=== PATIENT | female | born 1930 | race Caucasian/White ===

== ENCOUNTER → 2016-11-20 | Outpatient (CLI) | payer OTHER, BC ==
[~2016-11-20] MED LIST: BND25X PO; PRED50TA PO; SYN50 PO; ZNTT/150 PO
== END | disposition home or self-care (01) ==
LOC: C.LABBC 12:00
PROVIDERS: ATTEND Internal Medicine Geriatric Medicine
DX: E03.9 Hypothyroidism, unspecified (principal)

== ENCOUNTER 2017-10-04 19:43 | Emergency (ER) | payer OTHER, BC ==
[~2017-10-04] VITALS: Ht 165.1 cm; Wt 75.6 kg
[2017-10-04 19:49] VITALS: TEMP 36.2; Ht 165.1 cm; Wt 75.6 kg
--- NOTE | 2017-10-04 20:19 | EMERGENCY ROOM VISIT NOTE ---
History Report prepared by Betsy: Jaylan Alcantar Under the Supervision of: Dr. Wes Hinton D.O. First contact with patient: 19:54 Chief Complaint: HYPERTENSION Stated Complaint: PAIN AND HIGH BLOOD PRESSURE History of Present Illness The patient is an 87 year old female who presents to the Emergency Room with complaints of a constant and dull right sided rib pain that the patient has been experiencing for a few days. The patient notes that the pain is always there, but it is not overbearing. The pain is not worsened with breathing. She was also concerned after experiencing a light headed episode after walking up the steps this afternoon. Following this episode she took her blood pressure and found that she was in the 200's systolically. She denies any chest pain or trouble breathing. The patient has a history of hypertension and appendectomy. She visited with Dr. Bains this week for a Prevnar 13 shot. Source of History: patient Onset: A few days [employer] Position: other (Right ribs) Symptom Intensity: minimal Timing: constant Note: Light headed/hypertension Review of Systems See HPI for pertinent positives & negatives. A total of 10 systems reviewed and were otherwise negative. Past Medical & Surgical Medical Problems: (1) Hypertension Surgical Problems: (1) History of appendectomy Hypertension Family History Not pertinent secondary to age. Social History Smoking Status: Former Smoker Drug Use: none Marital Status: Housing Status: lives with significant other Occupation Status: retired Current/Historical Medications Scheduled Hydrochlorothiazide (Hctz), 12.5 MG PO DAILY Labetalol (Normodyne), 100 MG PO BID Levothyroxine Sodium (Levothyroxine Sodium), 75 MCG PO DAILY Allergies Coded Allergies: No Known Allergies (Unverified , NONE, 10/04/17) Physical Exam Vital Signs Date Time Temp Pulse Resp B/P (MAP) Pulse Ox O2 Delivery O2 Flow Rate FiO2 10/04/17 23:29 60 16 132/81 96 10/04/17 22:10 67 138/65 128/61 10/04/17 21:35 82 16 214/111 95 Room Air 10/04/17 20:34 79 10/04/17 19:49 36.2 122 20 221/107 96 Room Air Physical Exam GENERAL: Patient is awake, alert, and in no acute distress. Patient is resting comfortably and showing no signs of anxiety EYES: The conjunctivae are clear. The pupils are round and reactive. EARS, NOSE, MOUTH AND THROAT: The nose is without any evidence of any deformity. Mucous membranes are moist tongue is midline NECK: The neck is nontender and supple. RESPIRATORY: Normal respiratory effort is noted there is no evidence of wheezing rhonchi or rales CARDIOVASCULAR: Regular rate and rhythm noted there no murmurs rubs or gallops normal S1 normal S2 GASTROINTESTINAL: The abdomen is soft. Bowel sounds are present in all quadrants. There is RUQ tenderness to palpation. PELVIS: The Pelvis is stable. No tenderness to palpation is noted. BACK: No midline tenderness or or step-off noted range of motion in flexion extension as well as rotation no signs of muscle spasm noted. There is right CVA tenderness to percussion. MUSCULOSKELETAL/EXTREMITIES: There is no evidence of gross deformity full range of motion is noted in the hips and shoulders SKIN: There is no obvious evidence of any rash. There are no petechiae, pallor or cyanosis noted. NEUROLOGIC: Patient is awake alert and oriented x3 strength is symmetric patellar reflexes are 2+ bilaterally Medical Decision & Procedures ER Provider Diagnostic Interpretation: Radiology results as stated below per my review and radiologist interpretation: ABDOMINAL ULTRASOUND, RIGHT UPPER QUADRANT HISTORY: Right upper quadrant pain.. COMPARISON: Abdomen and pelvis CT 10/04/2017. FINDINGS: Pancreas: The pancreas demonstrates a normal echotexture. Liver: Unremarkable. Gallbladder: No gallbladder wall thickening. No gallstones. CBD: 6 mm. Right kidney: No hydronephrosis. A 1.6 cm angiomyolipoma. IMPRESSION: 1. Normal gallbladder. No gallstones. 2. 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 Electronically signed by: Hilton Flores M.D. 10/04/2017 10:55 PM Dictated Date/Time: 10/04/2017 10:[address] NON[address]AST CT DOSE: 537.48 mGy.cm HISTORY: dizzy TECHNIQUE: Multiaxial CT images of the head were performed without the use of intravenous contrast. Automated exposure control was utilized for this study. A dose lowering technique was utilized adhering to the principles of ALARA. Comparison: None. Findings: The paranasal sinuses and mastoid air cells are clear. The calvarium and skull base are intact. There is no mass, hematoma, midline shift, acute infarct. White matter hypodensity is nonspecific but suggestive of microvascular ischemic change. The ventricles and sulci demonstrate mild age-related involutional changes. Impression: No acute intracranial abnormality. Electronically signed by: Hilton Flores M.D. 10/04/2017 8:59 PM Dictated Date/Time: 10/04/2017 8:58 PM ABDOMEN AND PELVIS CT WITHOUT CONTRAST CT DOSE: 477.13 mGy.cm HISTORY: right flank pain TECHNIQUE: Multiaxial CT images of the abdomen and pelvis were performed without contrast. A dose lowering technique was utilized adhering to the principles of ALARA. COMPARISON STUDY: Abdominal ultrasound 07/22/2013. FINDINGS: A few linear densities at the lung bases suggesting subsegmental atelectasis. No suspicious lytic or blastic osseous lesions. Small hiatus hernia. The unenhanced liver, spleen, pancreas, and adrenal glands are unremarkable. No retroperitoneal lymphadenopathy. Questionable minimal fat stranding at the gallbladder. No gallbladder wall thickening. A 1.5 cm angiomyolipoma within the right kidney. No renal or ureteral calculi. The ureters are normal in course and caliber. No hydronephrosis. Normal bladder. A few calcifications within the uterus suggestive of small fibroids. Mild pelvic floor collapse. Colonic diverticulosis. Suboptimal evaluation for bowel pathology due to the lack of intravenous and oral contrast. However, there is no definite bowel wall thickening or obstruction. IMPRESSION: 1. No renal or ureteral calculi. No hydronephrosis. 2. No definite bowel wall thickening or obstruction. 3. Colonic diverticulosis. 4. Questionable minimal fat stranding surrounding the gallbladder. Recommend follow-up abdominal ultrasound to exclude the possibility of developing acute cholecystitis. 4. A 1.5 cm right renal angiomyolipoma. Electronically signed by: Hilton Flores M.D. 10/04/2017 9:12 PM Dictated Date/Time: 10/04/2017 9:02 PM A[address]OMEN AND PELVIS CT WITHOUT CONTRAST CT DOSE: 477.13 mGy.cm HISTORY: right flank pain TECHNIQUE: Multiaxial CT images of the abdomen and pelvis were performed without contrast. A dose lowering technique was utilized adhering to the principles of ALARA. COMPARISON STUDY: Abdominal ultrasound 07/22/2013. FINDINGS: A few linear densities at the lung bases suggesting subsegmental atelectasis. No suspicious lytic or blastic osseous lesions. Small hiatus hernia. The unenhanced liver, spleen, pancreas, and adrenal glands are unremarkable. No retroperitoneal lymphadenopathy. Questionable minimal fat stranding at the gallbladder. No gallbladder wall thickening. A 1.5 cm angiomyolipoma within the right kidney. No renal or ureteral calculi. The ureters are normal in course and caliber. No hydronephrosis. Normal bladder. A few calcifications within the uterus suggestive of small fibroids. Mild pelvic floor collapse. Colonic diverticulosis. Suboptimal evaluation for bowel pathology due to the lack of intravenous and oral contrast. However, there is no definite bowel wall thickening or obstruction. IMPRESSION: 1. No renal or ureteral calculi. No hydronephrosis. 2. No definite bowel wall thickening or obstruction. 3. Colonic diverticulosis. 4. Questionable minimal fat stranding surrounding the gallbladder. Recommend follow-up abdominal ultrasound to exclude the possibility of developing acute cholecystitis. 4. A 1.5 cm right renal angiomyolipoma. Electronically signed by: Hilton Flores M.D. 10/04/2017 9:12 PM Dictated Date/Time: 10/04/2017 9:02 PM Laboratory Results 10/04/17 20:07 Red Blood Count 4.79, Mean Corpuscular Volume 90.4, Mean Corpuscular Hemoglobin 31.3, Mean Corpuscular Hemoglobin Concent 34.6, Mean Platelet Volume 9.7, Neutrophils (%) (Auto) 60.4, Lymphocytes (%) (Auto) 27.3, Monocytes (%) (Auto) 9.8, Eosinophils (%) (Auto) 1.4, Basophils (%) (Auto) 0.8, Neutrophils # (Auto) 4.63, Lymphocytes # (Auto) 2.09, Monocytes # (Auto) 0.75, Eosinophils # (Auto) 0.11, Basophils # (Auto) 0.06 10/04/17 20:07 Test 10/04/17 20:07 10/04/17 20:30 White Blood Count 7.66 K/uL (4.8-10.8) Red Blood Count 4.79 M/uL (4.2-5.4) Hemoglobin 15.0 g/dL (12.0-16.0) Hematocrit 43.3 % (37-47) Mean Corpuscular Volume 90.4 fL (80-100) Mean Corpuscular Hemoglobin 31.3 pg (25-34) Mean Corpuscular Hemoglobin Concent 34.6 g/dl (32-36) Platelet Count 262 K/uL (130-400) Mean Platelet Volume 9.7 fL (7.4-10.4) Neutrophils (%) (Auto) 60.4 % Lymphocytes (%) (Auto) 27.3 % Monocytes (%) (Auto) 9.8 % Eosinophils (%) (Auto) 1.4 % Basophils (%) (Auto) 0.8 % Neutrophils # (Auto) 4.63 K/uL (1.4-6.5) Lymphocytes # (Auto) 2.09 K/uL (1.2-3.4) Monocytes # (Auto) 0.75 K/uL (0.11-0.59) Eosinophils # (Auto) 0.11 K/uL (0-0.5) Basophils # (Auto) 0.06 K/uL (0-0.2) RDW Standard Deviation 41.9 fL (36.4-46.3) RDW Coefficient of Variation 12.7 % (11.5-14.5) Immature Granulocyte % (Auto) 0.3 % Immature Granulocyte # (Auto) 0.02 K/uL (0.00-0.02) Prothrombin Time 10.2 SECONDS (9.0-12.0) Prothromb Time International Ratio 1.0 (0.9-1.1) Activated Partial Thromboplast Time 25.8 SECONDS (21.0-31.0) Partial Thromboplastin Ratio 1.0 Anion Gap 6.0 mmol/L (3-11) Est Creatinine Clear Calc Drug Dose 47.5 ml/min Estimated GFR () 69.4 Estimated GFR (Non- 59.9 BUN/Creatinine Ratio 15.9 (10-20) Calcium Level 9.1 mg/dl (8.5-10.1) Total Bilirubin 0.5 mg/dl (0.2-1) Direct Bilirubin 0.1 mg/dl (0-0.2) Aspartate Amino Transf (AST/SGOT) 27 U/L (15-37) Alanine Aminotransferase (ALT/SGPT) 31 U/L (12-78) Alkaline Phosphatase 93 U/L (45-117) Total Creatine Kinase 134 U/L (26-192) Creatine Kinase MB 7.2 ng/ml (0.5-3.6) Creatine Kinase MB Ratio 5.4 (0-3.0) Troponin I < 0.015 ng/ml (0-0.045) Total Protein 8.6 gm/dl (6.4-8.2) Albumin 4.2 gm/dl (3.4-5.0) Lipase 319 U/L (73-393) Urine Color YELLOW Urine Appearance CLEAR (CLEAR) Urine pH 7.5 (4.5-7.5) Urine Specific [place] 1.009 (1.000-1.030) Urine Protein NEG (NEG) Urine Glucose (UA) NEG (NEG) Urine Ketones NEG (NEG) Urine Occult Blood NEG (NEG) Urine Nitrite NEG (NEG) Urine Bilirubin NEG (NEG) Urine Urobilinogen NEG (NEG) Urine Leukocyte Esterase NEG (NEG) Laboratory results per my review. Medications Administered Medications (Trade) Dose Ordered Sig/Chinmay Route Start Time Stop Time Status Last Admin Dose Admin Labetalol HCl (Normodyne Tab) 200 mg NOW ONCE PO 10/04/17 21:30 10/04/17 21:31 DC 10/04/17 21:34 200 MG Sodium Chloride 500 ml @ 999 mls/hr Q31M STAT IV 10/04/17 22:15 10/04/17 22:45 DC 10/04/17 22:20 999 MLS/HR ECG Indication: other (Hypertension) Rate (beats per minute): 100 Rhythm: sinus rhythm Findings: PVC, other (LVH Suggested by voltage criteria) Comparison ECG Date: no prior available ED Course 1956: The patient was evaluated in room A11B. A complete history and physical examination were performed. 2129: Ordered Labetalol HCl 200 mg PO. 2214: Ordered Sodium Chloride 500 mL @ 999 mL/hr IV. 2312: Upon reevaluation, the patient is resting in bed. I discussed the results and treatment plan with the patient. She verbalized agreement of the treatment plan. The patient was discharged home. Medical Decision Differential diagnosis: Etiologies such as appendicitis, diverticulitis, PUD, biliary pathology, UTI, pancreatitis, obstruction, mesenteric ischemia, aortic pathology, infections, inflammatory bowel disease, renal colic, as well as others were entertained. Nursing notes reviewed. The patient is an 87-year-old female who presented to emergency department for dizziness but also had other complaints. She had right upper quadrant and right flank pain. Initially I thought her elevated blood pressure was secondary to the pain she was having but she continued to tell me that the pain was not that severe and she was more concerned about the dizziness. She was not short of breath and denied having any chest pain. I discussed the patient's laboratory and radiographic studies with her. She was given a beta liliya to try to bring her blood pressure down a little bit and had good response to it. At one point she got somewhat dizzy and was treated with IV fluids. On final reevaluation her blood pressure was improved and she had no further complaints. I discussed the patient's laboratory and radiographic studies with her. She was encouraged to rest and avoid any strenuous activity. I also encouraged her to continue all medications as prescribed and return to the emergency department immediately symptoms change worsen or the need arises. Medication Reconcilliation Current Medication List: was personally reviewed by me Blood Pressure Screening Blood pressure disposition: Referred to PCP Impression Primary Impression: Hypertension Additional Impressions: RUQ abdominal pain Dizziness Scribe Attestation The scribe's documentation has been prepared under my direction and personally reviewed by me in its entirety. I confirm that the note above accurately reflects all work, treatment, procedures, and medical decision making performed by me. Departure Information Dispostion Home / Self-Care Prescriptions Labetalol (Normodyne) 200 Mg Tab 100 MG PO BID, #30 TAB Prov: Wse Hinton, DO 10/04/17 Referrals Jamie Bains M.D. (PCP) Forms HOME CARE DOCUMENTATION FORM, IMPORTANT VISIT INFORMATION, WORK / SCHOOL INSTRUCTIONS Patient Instructions My [facility] Additional Instructions Call your family in the morning to schedule a follow-up appointment. Rest and avoid any strenuous activity. Continue all medications as prescribed. Return to the emergency Department immediately if symptoms change worsen or the need arises. Problem Qualifiers Primary Impression: Hypertension Hypertension type: unspecified Qualified Codes: I10 - Essential (primary) hypertension
[2017-10-04 20:24] LABS: BASO % 0.8 %; BASO ABS # 0.06 K/uL (0-0.2); EOS % 1.4 %; EOS ABS # 0.11 K/uL (0-0.5); HEMATOCRIT 43.3 % (37-47); IG# 0.02 K/uL (0.00-0.02); LYMPH % 27.3 %; LYMPH ABS # 2.09 K/uL (1.2-3.4); MEAN CELL VOLUME 90.4 fL (80-100); MEAN CORPUSCULAR HEMOGLOBIN 31.3 pg (25-34); MEAN CORPUSCULAR HGB CONC 34.6 g/dl (32-36); MEAN PLATELET VOLUME 9.7 fL (7.4-10.4); MONO % 9.8 %; MONO ABS # 0.75 K/uL (0.11-0.59); NEUT % 60.4 %; NEUT ABS # 4.63 K/uL (1.4-6.5); PLATELET COUNT 262 K/uL (130-400); RED CELL DISTRIBUTION WIDTH CV 12.7 % (11.5-14.5); RED CELL DISTRIBUTION WIDTH SD 41.9 fL (36.4-46.3); WHITE BLOOD COUNT 7.66 K/uL (4.8-10.8)
[2017-10-04] MEDS ORDERED: LEVO75TA5 PO (20:25)
[2017-10-04] MEDS ORDERED: HYDR12.56 PO (20:25)
[2017-10-04 20:39] LABS: ALBUMIN 4.2 gm/dl (3.4-5.0); ALT/SGPT 31 U/L (12-78); AST/SGOT 27 U/L (15-37); BLOOD UREA NITROGEN 14 mg/dl (7-18); CALCIUM 9.1 mg/dl (8.5-10.1); CARBON DIOXIDE 27 mmol/L (21-32); CREATININE 0.88 mg/dl (0.60-1.20); GLUCOSE 114 mg/dl (70-99); LIPASE 319 U/L (73-393); POTASSIUM 3.6 mmol/L (3.5-5.1); SODIUM 129 mmol/L (136-145)
--- NOTE | 2017-10-04 20:42 | DIAGNOSTIC IMAGING REPORT ---
CHEST ONE VIEW PORTABLE HISTORY: Generalized abdominal pain. COMPARISON: Chest 06/16/2014. FINDINGS: The heart remains top normal in size. No pleural effusions. No pneumothorax. Small linear scarlike densities at the left lung base persist. The lungs are otherwise clear. IMPRESSION: No significant change compared to the prior study. No acute process. Electronically signed by: Hilton Floers M.D. 10/04/2017 8:41 PM Dictated Date/Time: 10/04/2017 8:40 PM
[2017-10-04 20:43] LABS: PTT PATIENT 25.8 SECONDS (21.0-31.0)
[2017-10-04 20:44] LABS: ALKALINE PHOSPHATASE 93 U/L (45-117); CKMB 7.2 ng/ml (0.5-3.6); TOTAL PROTEIN 8.6 gm/dl (6.4-8.2)
--- NOTE | 2017-10-04 21:01 | DIAGNOSTIC IMAGING REPORT ---
HEAD CT NONCONTRAST CT DOSE: 537.48 mGy.cm HISTORY: dizzy TECHNIQUE: Multiaxial CT images of the head were performed without the use of intravenous contrast. Automated exposure control was utilized for this study. A dose lowering technique was utilized adhering to the principles of ALARA. Comparison: None. Findings: The paranasal sinuses and mastoid air cells are clear. The calvarium and skull base are intact. There is no mass, hematoma, midline shift, acute infarct. White matter hypodensity is nonspecific but suggestive of microvascular ischemic change. The ventricles and sulci demonstrate mild age-related involutional changes. Impression: No acute intracranial abnormality. Electronically signed by: Hilton Flores M.D. 10/04/2017 8:59 PM Dictated Date/Time: 10/04/2017 8:58 PM
--- NOTE | 2017-10-04 21:13 | DIAGNOSTIC IMAGING REPORT ---
ABDOMEN AND PELVIS CT WITHOUT CONTRAST CT DOSE: 477.13 mGy.cm HISTORY: right flank pain TECHNIQUE: Multiaxial CT images of the abdomen and pelvis were performed without contrast. A dose lowering technique was utilized adhering to the principles of ALARA. COMPARISON STUDY: Abdominal ultrasound 07/22/2013. FINDINGS: A few linear densities at the lung bases suggesting subsegmental atelectasis. No suspicious lytic or blastic osseous lesions. Small hiatus hernia. The unenhanced liver, spleen, pancreas, and adrenal glands are unremarkable. No retroperitoneal lymphadenopathy. Questionable minimal fat stranding at the gallbladder. No gallbladder wall thickening. A 1.5 cm angiomyolipoma within the right kidney. No renal or ureteral calculi. The ureters are normal in course and caliber. No hydronephrosis. Normal bladder. A few calcifications within the uterus suggestive of small fibroids. Mild pelvic floor collapse. Colonic diverticulosis. Suboptimal evaluation for bowel pathology due to the lack of intravenous and oral contrast. However, there is no definite bowel wall thickening or obstruction. IMPRESSION: 1. No renal or ureteral calculi. No hydronephrosis. 2. No definite bowel wall thickening or obstruction. 3. Colonic diverticulosis. 4. Questionable minimal fat stranding surrounding the gallbladder. Recommend follow-up abdominal ultrasound to exclude the possibility of developing acute cholecystitis. 4. A 1.5 cm right renal angiomyolipoma. Electronically signed by: Hilton Flores M.D. 10/04/2017 9:12 PM Dictated Date/Time: 10/04/2017 9:02 PM
[2017-10-04] MEDS ORDERED: LABETALOL HCL 100 MG TAB PO ONE (21:30)
[2017-10-04] MEDS ORDERED: SODIUM CHLORIDE 0.9% 500ML 500 ML IV STA (22:15)
--- NOTE | 2017-10-04 22:56 | DIAGNOSTIC IMAGING REPORT ---
ABDOMINAL ULTRASOUND, RIGHT UPPER QUADRANT HISTORY: Right upper quadrant pain.. COMPARISON: Abdomen and pelvis CT 10/04/2017. FINDINGS: Pancreas: The pancreas demonstrates a normal echotexture. Liver: Unremarkable. Gallbladder: No gallbladder wall thickening. No gallstones. CBD: 6 mm. Right kidney: No hydronephrosis. A 1.6 cm angiomyolipoma. IMPRESSION: 1. Normal gallbladder. No gallstones. 2. 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 Electronically signed by: Hilton Flores M.D. 10/04/2017 10:55 PM Dictated Date/Time: 10/04/2017 10:54 PM
[2017-10-04] MEDS ORDERED: LABE1TAB28 PO (23:14)
[2017-10-04 23:29] VITALS: BP 132/81; PULSE 60; O2SAT 96
== END 2017-10-04 23:29 | disposition home or self-care (01) ==
LOC: C.EDB 19:44 → C.EDA 23:29
DX: I10 Essential (primary) hypertension (principal); R10.11 Right upper quadrant pain; R42 Dizziness and giddiness; Z87.891 Personal history of nicotine dependence; Z90.89 Acquired absence of other organs; Z79.899 Other long term (current) drug therapy

== ENCOUNTER → 2017-10-08 | Outpatient (CLI) | payer OTHER, BC ==
[~2017-10-08] MED LIST changes: -BND25X PO; +CHOL1000 PO; +HYDR12.56 PO; +LABE1TAB28 PO; +LEVO75TA5 PO; +LISI-729 PO; -PRED50TA PO; -SYN50 PO; -ZNTT/150 PO
[2017-10-08 11:30] LABS: BLOOD UREA NITROGEN 12 mg/dl (7-18); CALCIUM 9.4 mg/dl (8.5-10.1); CARBON DIOXIDE 26 mmol/L (21-32); CREATININE 0.78 mg/dl (0.60-1.20); GLUCOSE 122 mg/dl (70-99); POTASSIUM 3.8 mmol/L (3.5-5.1); SODIUM 133 mmol/L (136-145)
== END | disposition home or self-care (01) ==
LOC: C.LABBC 08:22
PROVIDERS: ATTEND Internal Medicine Geriatric Medicine
DX: I10 Essential (primary) hypertension (principal)

== ENCOUNTER 2017-10-09 22:35 | Emergency (ER) | payer OTHER, BC ==
[~2017-10-09] VITALS: Ht 165.1 cm; Wt 75.9 kg
[~2017-10-09 22:35] MED LIST changes: -CHOL1000 PO; -LISI-729 PO
[2017-10-09 22:38] VITALS: TEMP 36.7; Ht 165.1 cm; Wt 75.9 kg
--- NOTE | 2017-10-09 23:37 | EMERGENCY ROOM VISIT NOTE ---
History Report prepared by Betsy: Len Dash Under the Supervision of: Dr. Luli Matthews D.O. First contact with patient: 22:58 Chief Complaint: HYPERTENSION Stated Complaint: HIGH BP,TINGLING AND WARM,DIZZY History of Present Illness The patient is a 87 year old female who presents to the Emergency Room with complaints of intermittent hypertension that began prior to arrival. Patient states she was walking up the stairs at her house when she began to feel "strange". Patient states that she gets this intermittent "overwhelming feeling ". She states the feeling comes on suddenly and last for about 5 minutes. She states her blood pressure during this episode was 187/86. She states the feeling is relieved when she sits down and takes deep breaths. She has associated symptoms of "tingling", hot flashes, dizziness, and a "weird, metallic taste in her mouth". She denies having the taste in her mouth before. She denies a history of similar symptoms. Patient denies associated symptoms stress, SOB, syncope, or palpitations. Patient denies any change of diet. She adds that she drinks a normal amount of fluids. Patient adds that she was at the ER 5 days ago due to a complaint of hypertension. She states she saw her PCP 4 days ago. She adds that the medications she was given by her PCP caused her to have a false reaction. Patient's PCP told her to discontinue the medication until she had a follow-up visit. Patient states that her PCP referred her to ER. She states that she had blood work done yesterday that came back normal. Patient adds that she takes a thyroid medication. Source of History: patient Onset: Prior to arrival Timing: intermittent Modifying Factors (Relieving): breathing (Deep breaths) Note: Patient has associated symptoms of "tingling", hot flashes, and dizziness. Review of Systems See HPI for pertinent positives & negatives. A total of 10 systems reviewed and were otherwise negative. Past Medical & Surgical Medical Problems: (1) Hypertension Surgical Problems: (1) History of appendectomy Family History No pertinent family medical history. Social History Smoking Status: Never Smoker Drug Use: none Marital Status: in relationship Housing Status: lives with significant other Occupation Status: retired Current/Historical Medications Scheduled Cholecalciferol (Vitamin D3), 1 TAB PO DAILY Levothyroxine Sodium (Levothyroxine Sodium), 75 MCG PO DAILY Lisinopril (Prinivil), 10 MG PO DAILY Allergies Coded Allergies: No Known Allergies (Unverified , NONE, 10/10/17) Physical Exam Vital Signs Date Time Temp Pulse Resp B/P (MAP) Pulse Ox O2 Delivery O2 Flow Rate FiO2 10/10/17 03:32 68 18 152/76 95 Room Air 10/10/17 02:21 72 18 181/107 98 Room Air 10/09/17 23:45 80 184/84 84 187/102 85 198/87 10/09/17 23:10 75 10/09/17 22:38 36.7 90 20 237/118 97 Room Air Physical Exam HEENT: Head - normocephalic and atraumatic Pupils are equal, round, and reactive to light. Extraocular eye muscles are intact, and sclera are anicteric. Nose - moist nasal mucosa without discharge. Mouth - moist buccal mucosa. Oropharynx is nonerythematous and there is no tonsillar exudate or edema noted. Neck: Supple; no JVD, nuchal rigidity, cervical lymphadenopathy. Heart: Irregular rate and rhythm. There is a normal S1 and S2 with no murmurs, clicks, or gallops appreciated. Lungs: Clear to auscultation bilaterally with no wheezes, rales, or rhonchi. Abdomen: Soft, completely nontender, nondistended, with good bowel sounds. There are no palpable pulsatile masses or hepatosplenomegaly. There is no guarding, rigidity, or rebound noted. Extremities: No evidence of cyanosis, clubbing, or edema. There are easily palpable peripheral pulses. Skin: warm and dry with good turgor and no rashes. Medical Decision & Procedures Laboratory Results 10/09/17 23:00 Test 10/09/17 23:00 Anion Gap 6.0 mmol/L (3-11) Est Creatinine Clear Calc Drug Dose 51.8 ml/min Estimated GFR () 76.8 Estimated GFR (Non- 66.2 BUN/Creatinine Ratio 16.7 (10-20) Calcium Level 9.7 mg/dl (8.5-10.1) Thyroid Stimulating Hormone (TSH) 4.230 uIu/ml (0.300-4.500) Laboratory results per my review. Medications Administered Medications (Trade) Dose Ordered Sig/Chinmay Route Start Time Stop Time Status Last Admin Dose Admin Sodium Chloride 500 ml @ 999 mls/hr Q31M STAT IV 10/10/17 01:47 10/10/17 02:17 DC 10/10/17 01:47 999 MLS/HR Lorazepam (Ativan Inj) 0.5 mg NOW STAT IV 10/10/17 02:38 10/10/17 02:40 DC 10/10/17 02:44 0.5 MG Procedure Sodium Chloride 500 ml @ 999 mls/hr IV, Ativan Inj 0.5mg IV ECG Indication: other (Hypertension) Rate (beats per minute): 81 Rhythm: normal sinus Findings: no acute ischemic change, no ectopy Comparison ECG Date: 10/04/2017 Change: no significant change Change: Patient's electrocardiogram was interpreted by me. ED Course 2315: The patient was evaluated in room C1B. A complete history and physical examination were performed. Nursing notes and previous electronic medical records were reviewed. IV lock was established and labs were drawn as above. A twelve-lead EKG was obtained as described above. 0010: Orthostatic vital signs - systolic blood pressure elevated upon standing 0136: I reassessed the patient whose blood pressure was 180/77. Patient added that she had one episode where she felt "scared." 0147: Sodium Chloride 500 ml @ 999 mls/hr IV. 0233: I reassessed the patient whose blood pressure is still high. 0238: Ativan Inj 0.5mg IV 0330: Upon reevaluation, the patient is feeling much better. I discussed findings and results with her. Her blood pressure came down nicely. She verbalized agreement of the treatment plan. She was discharged home. Medical Decision The patient is a 87 year old female who presents to the ED with hypertension. Differential diagnosis includes thyroid abnormality, hypertensive crisis, cardiac dysrhythmia, hyponatremia, orthostasis. Lab results show sodium = 133, chloride = 97, normal renal function, normal glucose, and normal TSH. This is an 87-year-old female patient who presents to the emergency department with episodes of near syncope or as she describes it as an overwhelming strange sensation. During these events, she has noted that her blood pressure has been high. She was switched from hydrochlorothiazide to lisinopril. The doses prescribed may have been too high and she was instructed to lower it. The patient is resting comfortably at this time. She did have some elevated blood pressure readings. She seemed quite anxious to me on physical exam. She was given a dose of Ativan which helped her relax and lower blood pressure. Medication Reconcilliation Current Medication List: was personally reviewed by me Blood Pressure Screening Patient's blood pressure: Elevated blood pressure Blood pressure disposition: Referred to PCP Impression Primary Impression: Hypertension Scribe Attestation The scribe's documentation has been prepared under my direction and personally reviewed by me in its entirety. I confirm that the note above accurately reflects all work, treatment, procedures, and medical decision making performed by me. Departure Information Dispostion Home / Self-Care Referrals Jamie Bains M.D. (PCP) Forms HOME CARE DOCUMENTATION FORM, IMPORTANT VISIT INFORMATION, WORK / SCHOOL INSTRUCTIONS Patient Instructions Hypertension Control, My [facility] [place] [employer] Additional Instructions rest take bp twice a day and keep a log. Take lisinopril - 1 tab. in the morning Follow up with Dr. Bains on thursday about possible anxiety med if BP remains high Problem Qualifiers Primary Impression: Hypertension Hypertension type: unspecified Qualified Codes: I10 - Essential (primary) hypertension
[2017-10-10] MEDS ORDERED: LISI-729 PO (00:24)
[2017-10-10] MEDS ORDERED: CHOL1000 PO (00:25)
[2017-10-10 00:51] LABS: CALCIUM 9.7 mg/dl (8.5-10.1); CREATININE 0.81 mg/dl (0.60-1.20); POTASSIUM 3.9 mmol/L (3.5-5.1)
[2017-10-10] MEDS ORDERED: SODIUM CHLORIDE 0.9% 500ML 500 ML IV STA (01:47)
[2017-10-10] MEDS ORDERED: LORAZEPAM 2 MG/ML 1 ML VIAL IV STA (02:38)
[2017-10-10 03:32] VITALS: BP 152/76; PULSE 68; O2SAT 95
== END 2017-10-10 03:52 | disposition home or self-care (01) ==
LOC: C.EDB 22:38 → C.EDC 10-10 03:52
DX: I10 Essential (primary) hypertension (principal)

== ENCOUNTER → 2017-10-12 | Outpatient (CLI) | payer OTHER, BC ==
[~2017-10-12] MED LIST changes: +CHOL1000 PO; +LISI-729 PO
== END | disposition home or self-care (01) ==
LOC: C.LABBC 09:30
PROVIDERS: ATTEND Internal Medicine Geriatric Medicine
DX: I10 Essential (primary) hypertension (principal)

== ENCOUNTER → 2017-11-03 | Outpatient (CLI) | payer OTHER, BC ==
[~2017-11-03] MED LIST changes: +GADAVIST IV PRN; -HYDR12.56 PO; -LABE1TAB28 PO
--- NOTE | 2017-11-03 14:25 | DIAGNOSTIC IMAGING REPORT ---
MRA ABDOMEN COMBO HISTORY: 87 years-old Female I70.1 Renal artery [id number] COMPARISON: CT abdomen and pelvis 10/04/2017 TECHNIQUE: MRA of the abdomen was obtained according to institutional protocol both with and without the use of 7.5 mL Gadavist. All measurements were obtained according to NASCET criteria. FINDINGS: The large [id number] road inspector localizer images demonstrate no gross abnormality. 1.5 cm ovoid circumscribed lesion of the superior pole right kidney demonstrating predominantly macroscopic fat which saturates out on the fat sat images is compatible with renal angiomyolipoma. There is a minimal focus of internal enhancement along the superior lateral portion of lesion with a thin internal enhancing septation. Minimal perinephric fat stranding is noted bilaterally. Gallbladder is mildly contracted. Mild generalized pancreatic atrophy. 6 mm ovoid T2 hyperintense lesion of the pancreatic tail is seen on image 7 series 4 with similar appearing 10 mm lesion noted within the region of the pancreatic neck on the same image. No appreciable enhancement identified within either of these lesions. The remaining solid organs are unremarkable. There is no adenopathy identified. Diverticulosis of the colon is better seen on comparison CT. No aortic aneurysm or dissection identified. Aorta and IVC appear patent. The bilateral renal arteries appear widely patent. There is minimal atheromatous plaquing at the origin of the right renal artery as seen on image 97 series 500 causing less than 50% narrowing. Single renal arteries are noted bilaterally. There is prominent plaquing seen at the origin of the celiac trunk which results in 60% luminal narrowing. Superior and inferior mesenteric arteries appear patent. The bilateral common iliac arteries also appear patent and within normal limits. IMPRESSION: 1. No evidence of renal artery stenosis. 2. 60% luminal narrowing involves the origin of the celiac trunk likely secondary to prominent atherosclerotic plaquing. 3. No aneurysm, dissection or proximal branch occlusion identified. 4. 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 5. Two ovoid T2 hyperintense lesions of the pancreas as above measuring up to 10 mm suggest sidebranch IPMN's. The above report was generated using voice recognition software. It may contain grammatical, syntax or spelling errors. Electronically signed by: Victor M Phan M.D. 11/03/2017 2:23 PM Dictated Date/Time: 11/03/2017 2:09 PM
== END | disposition home or self-care (01) ==
LOC: C.MRI 12:47
PROVIDERS: ATTEND Internal Medicine Geriatric Medicine
DX: I70.1 Atherosclerosis of renal artery (principal)

== ENCOUNTER → 2018-01-18 | Outpatient (CLI) | payer OTHER, BC ==
[~2018-01-18] MED LIST changes: -GADAVIST IV PRN
[2018-01-18 14:51] LABS: BLOOD UREA NITROGEN 6 mg/dl (7-18); CARBON DIOXIDE 25 mmol/L (21-32); CREATININE 0.79 mg/dl (0.60-1.20); GLUCOSE 101 mg/dl (70-99); POTASSIUM 4.3 mmol/L (3.5-5.1); SODIUM 133 mmol/L (136-145)
[2018-01-18 15:02] LABS: CHOLESTEROL 224 mg/dl (0-200); LDL CHOLESTEROL CALCULATED 133 mg/dl
== END | disposition home or self-care (01) ==
LOC: C.LABBC 09:51
PROVIDERS: ATTEND Nurse Practitioner Adult Health
DX: R30.0 Dysuria (principal); I10 Essential (primary) hypertension; E78.5 Hyperlipidemia, unspecified; I70.8 Atherosclerosis of other arteries; E03.9 Hypothyroidism, unspecified

== ENCOUNTER → 2018-01-28 | Outpatient (CLI) | payer OTHER, BC | END | disposition home or self-care (01) | LOC: C.LABSPEC 17:29 | PROVIDERS: ATTEND Urology | DX: N39.0 Urinary tract infection, site not specified (principal); R10.2 Pelvic and perineal pain ==

== ENCOUNTER → 2018-02-04 | Outpatient (CLI) | payer OTHER, BC ==
[~2018-02-04] MED LIST changes: +OPTIRAY 320 IV PRN
--- NOTE | 2018-02-04 14:02 | DIAGNOSTIC IMAGING REPORT ---
ABD/PELVIS IV CONTRAST ONLY CLINICAL HISTORY: 87 years-old Female presenting with R10.2 Suprapubic pain, acute. TECHNIQUE: Multidetector CT of the abdomen and pelvis was performed after the administration of intravenous contrast. IV contrast: 94 mL of Optiray 320. A dose lowering technique was used consistent with the principles of ALARA (as low as reasonably achievable). COMPARISON: 10/04/2017. CT DOSE (mGy.cm): The estimated cumulative dose is 783.00 mGycm. FINDINGS: Butadiene Converter Operator topogram: Unremarkable. Lung bases: Minimal basilar opacities, likely atelectasis. Mosaic attenuation suggest small airways disease. Normal heart size. Coronary artery and aortic valve calcification. No pericardial or pleural effusion. Liver: Normal morphology. No liver lesion. Patent hepatic vasculature. Biliary: No intrahepatic or extrahepatic biliary ductal dilatation. Intramural fat deposition suggested, which may imply a history of chronic inflammation. Otherwise normal gallbladder. Pancreas: 11 mm cystic lesion in the uncinate. No pancreatic ductal dilatation. Spleen: Normal. Adrenal glands: Normal. Kidneys and ureters: 1.6 cm macroscopic fat-containing lesion in the right kidney consistent with angiomyolipoma, unchanged. No additional renal lesion. No nephrolithiasis. No hydronephrosis. Ureters normal. Bladder: The configuration of the bladder suggests pelvic ligamentous laxity. No bladder wall thickening. Pelvic organs: Uterine fibroid noted. The endometrium may be thickened for the patient's postmenopausal status. The endometrium measures 9 mm in thickness. No adnexal masses. Bowel: Diverticulosis of the sigmoid colon. No pericolonic inflammatory change or wall thickening is evident. No bowel obstruction. Trace hiatal hernia. Peritoneal cavity: No free fluid or intraperitoneal gas. Lymph nodes: No enlarged lymph nodes in the abdomen or pelvis. Vasculature: Atherosclerosis of the normal caliber abdominal aorta. IVC patent. Abdominal wall: Normal. Musculoskeletal: Degenerative changes of the spine. IMPRESSION: 1. The configuration of the bladder suggests pelvic floor laxity. No bladder wall thickening to suggest cystitis. No abnormality in the suprapubic region. No acute intra-abdominal pathology. 2. Fibroid uterus. 3. Suspected endometrial thickening. Gynecologic consultation recommended. 4. Diverticulosis. 5. 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 No worrisome features. Per Cristy 2012 criteria, yearly CT or MRI follow-up for 2 years recommended than lengthening the interval with no change. 6. 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 Electronically signed by: Maximo Boyer M.D. 02/04/2018 2:00 PM Dictated Date/Time: 02/04/2018 1:50 PM
[2018-02-04 14:51] LABS: BASO % 0.9 %; BASO ABS # 0.06 K/uL (0-0.2); EOS % 0.9 %; EOS ABS # 0.06 K/uL (0-0.5); HEMATOCRIT 37.6 % (37-47); HEMOGLOBIN 13.1 g/dL (12.0-16.0); IG# 0.02 K/uL (0.00-0.02); LYMPH % 22.6 %; LYMPH ABS # 1.55 K/uL (1.2-3.4); MEAN CELL VOLUME 88.9 fL (80-100); MEAN CORPUSCULAR HGB CONC 34.8 g/dl (32-36); MEAN PLATELET VOLUME 9.4 fL (7.4-10.4); MONO % 9.3 %; MONO ABS # 0.64 K/uL (0.11-0.59); NEUT ABS # 4.54 K/uL (1.4-6.5); PLATELET COUNT 289 K/uL (130-400); RED CELL DISTRIBUTION WIDTH CV 12.8 % (11.5-14.5); RED CELL DISTRIBUTION WIDTH SD 41.2 fL (36.4-46.3); WHITE BLOOD COUNT 6.87 K/uL (4.8-10.8)
== END | disposition home or self-care (01) ==
LOC: C.CTS 13:00
PROVIDERS: ATTEND Physician Assistant Medical
DX: R10.2 Pelvic and perineal pain (principal); D25.9 Leiomyoma of uterus, unspecified; K57.90 Diverticulosis of intestine, part unspecified, without perforation or abscess without bleeding; K86.2 Cyst of pancreas; D17.71 Benign lipomatous neoplasm of kidney

== ENCOUNTER → 2018-02-04 | Outpatient (CLI) | payer OTHER, BC ==
[~2018-02-04] MED LIST changes: -OPTIRAY 320 IV PRN
== END | disposition home or self-care (01) ==
LOC: C.LABBC 09:19
PROVIDERS: ATTEND Urology
DX: R30.0 Dysuria (principal)